=== PATIENT | male | born 1965 | race Two or more races ===

== ENCOUNTER 2022-12-17 16:13 | Emergency (ER) | payer BC ==
[~2022-12-17] VITALS: Ht 180.3 cm; Wt 78.9 kg
[2022-12-17] MEDS ORDERED: DIAZEPAM2 MG PO (16:20)
== END 2022-12-17 19:27 | disposition home or self-care (01) ==
LOC: ER 16:13
DX: F41.8 Other specified anxiety disorders (principal); R00.2 Palpitations